=== PATIENT | female | born 1990 | race Caucasian/White ===

== ENCOUNTER 2016-11-07 20:52 | Emergency (ER) | payer BC, OTHER ==
[~2016-11-07] VITALS: Ht 160 cm; Wt 55.0 kg
[~2016-11-07 20:52] MED LIST: BCPILLS PO
[2016-11-07 20:59] VITALS: TEMP 36.6; Ht 160 cm; Wt 55.0 kg
[2016-11-07] MEDS ORDERED: DiphenhydrAMINE HCL 50 MG/ML VIAL IV STA (21:17)
[2016-11-07] MEDS ORDERED: ONDANSETRON 8 MG/54 ML D5W IV STA (21:17)
[2016-11-07] MEDS ORDERED: SODIUM CHLORIDE 0.9% 1000ML 1,000 ML IV STA (21:17)
[2016-11-07] MEDS ORDERED: [UNRECOGNIZED DRUG - OTHER] PO (21:28)
[2016-11-07] MEDS ORDERED: MoRPHine SULFATE 4 MG/ML 1 ML CARP\\VIAL IV PRN (21:30)
--- NOTE | 2016-11-07 21:31 | EMERGENCY ROOM VISIT NOTE ---
History Report prepared by Lindy: Elvis Garcia Under the Supervision of: Dr. Asad Esteves D.O. First contact with patient: 21:03 Chief Complaint: VOMITING Stated Complaint: VOMITING,POSSIBLE FOOD POISIONING History of Present Illness The patient is a 26 year old female who presents to the Emergency Room with complaints of intermittent vomiting beginning two hours prior to arrival. She currently rates her discomfort as an 8/10 in severity. The patient associates intermittent nausea and upper abdominal pain with today's symptoms. She notes she ate chicken, beans, and broccoli salad for dinner five hours ago. The patient states she does not think the meat was cooked well. She denies having issues like this in the past. The patient denies a chance of and states her last period was two weeks ago. She notes she has had two pregnancies and two children. The denies eating the chicken and beans that the patient ate. Pt denies LOC, headache, fevers, chills, diaphoresis, visual changes, neck pain, chest pain, breathing difficulties, back pain, melena, hematochezia, urinary symptoms, numbness, weakness, lymphadenopathy, rash, or other complaints. 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 A total of ten systems were reviewed and were otherwise negative. Past Medical & Surgical Medical Problems: (1) Deliver-Single Liveborn Family History Diabetes mellitus FH: cancer FH: lung disease Hypertension Kidney disease Kidney stones Social History Smoking Status: Never Smoker Alcohol Use: none Drug Use: none Marital Status: Housing Status: lives with family Occupation Status: employed Current/Historical Medications Scheduled Ondasetron Odt (Zofran Odt), 4 MG SL Q6H Scheduled PRN [Digestive-Tapan], 1 TAB PO DAILY PRN for Allergies Coded Allergies: No Known Allergies (Verified , 11/07/16) Physical Exam Vital Signs Date Time Temp Pulse Resp B/P Pulse Ox O2 Delivery O2 Flow Rate FiO2 11/07/16 23:14 84 20 92/52 100 Room Air 11/07/16 22:03 95 11/07/16 21:53 94 18 84/53 100 Room Air 11/07/16 20:59 36.6 87 18 105/67 98 Room Air Physical Exam GENERAL: Awake, alert, uncomfortable-appearing with a bucket full of vomit at bedside. HENT: Normocephalic, atraumatic. Oropharynx unremarkable. EYES: Normal conjunctiva. Sclera non-icteric. NECK: Supple. No nuchal rigidity. FROM. No JVD. RESPIRATORY: Clear to auscultation. CARDIAC: Regular rate, normal rhythm. Extremities warm and well perfused. Pulses equal. ABDOMEN: Soft, non-distended. Mild epigastric, right upper quadrant, and suprapubic tenderness to palpation. No rebound or guarding. No masses. RECTAL: Deferred. MUSCULOSKELETAL: Chest examination reveals no tenderness. The back is symmetrical on inspection without obvious abnormality. There is no CVA tenderness to palpation. No joint edema. LOWER EXTREMITIES: Calves are equal size bilaterally and non-tender. No edema. No discoloration. NEURO: Normal sensorium. No sensory or motor deficits noted. SKIN: No rash or jaundice noted. Medical Decision & Procedures Laboratory Results 11/07/16 21:45 Red Blood Count 5.24, Mean Corpuscular Volume 81.9, Mean Corpuscular Hemoglobin 27.9, Mean Corpuscular Hemoglobin Concent 34.0, Mean Platelet Volume 9.5, Neutrophils (%) (Auto) 87.2, Lymphocytes (%) (Auto) 4.5, Monocytes (%) (Auto) 6.7, Eosinophils (%) (Auto) 1.2, Basophils (%) (Auto) 0.1, Neutrophils # (Auto) 14.39, Lymphocytes # (Auto) 0.74, Monocytes # (Auto) 1.10, Eosinophils # (Auto) 0.20, Basophils # (Auto) 0.01 11/07/16 21:45 Test 11/07/16 21:45 White Blood Count 16.49 K/uL (4.8-10.8) Red Blood Count 5.24 M/uL (4.2-5.4) Hemoglobin 14.6 g/dL (12.0-16.0) Hematocrit 42.9 % (37-47) Mean Corpuscular Volume 81.9 fL (80-100) Mean Corpuscular Hemoglobin 27.9 pg (25-34) Mean Corpuscular Hemoglobin Concent 34.0 g/dl (32-36) Platelet Count 346 K/uL (130-400) Mean Platelet Volume 9.5 fL (7.4-10.4) Neutrophils (%) (Auto) 87.2 % Lymphocytes (%) (Auto) 4.5 % Monocytes (%) (Auto) 6.7 % Eosinophils (%) (Auto) 1.2 % Basophils (%) (Auto) 0.1 % Neutrophils # (Auto) 14.39 K/uL (1.4-6.5) Lymphocytes # (Auto) 0.74 K/uL (1.2-3.4) Monocytes # (Auto) 1.10 K/uL (0.11-0.59) Eosinophils # (Auto) 0.20 K/uL (0-0.5) Basophils # (Auto) 0.01 K/uL (0-0.2) RDW Standard Deviation 40.1 fL (36.4-46.3) RDW Coefficient of Variation 13.2 % (11.5-14.5) Immature Granulocyte % (Auto) 0.3 % Immature Granulocyte # (Auto) 0.05 K/uL (0.00-0.02) Anion Gap 11.0 mmol/L (3-11) Est Creatinine Clear Calc Drug Dose 81.5 ml/min Estimated GFR () 108.1 Estimated GFR (Non- 93.2 BUN/Creatinine Ratio 16.8 (10-20) Calcium Level 8.4 mg/dl (8.5-10.1) Total Bilirubin 0.3 mg/dl (0.2-1) Direct Bilirubin 0.1 mg/dl (0-0.2) Aspartate Amino Transf (AST/SGOT) 21 U/L (15-37) Alanine Aminotransferase (ALT/SGPT) 24 U/L (12-78) Alkaline Phosphatase 58 U/L (45-117) Total Protein 7.4 gm/dl (6.4-8.2) Albumin 3.7 gm/dl (3.4-5.0) Lipase 130 U/L (73-393) Human Chorionic Gonadotropin, Qual NEG (NEG) Laboratory results reviewed by me Medications Administered Medications (Trade) Dose Ordered Sig/Holly Route Start Time Stop Time Status Last Admin Dose Admin Sodium Chloride (Nss 1000ml) 1,000 ml @ 999 mls/hr Q1H1M STAT IV 11/07/16 21:17 11/07/16 22:17 DC 11/07/16 21:47 999 MLS/HR Ondansetron HCl (Zofran 8mg Iv) 8 mg NOW STAT IV 11/07/16 21:17 11/07/16 21:19 DC 11/07/16 21:46 8 MG Morphine Sulfate (MoRPHine SULFATE INJ) 4 mg Q1H PRN IV 11/07/16 21:30 11/07/16 23:58 DC 11/07/16 22:00 4 MG Diphenhydramine HCl (Benadryl Inj) 25 mg NOW STAT IV 11/07/16 21:17 11/07/16 21:19 DC 11/07/16 21:58 25 MG Ondansetron HCl (ZOFRAN ODT 4MG Home Pack) 1 homepack UD ONCE PO 11/07/16 23:00 11/07/16 23:01 DC 11/07/16 23:12 1 HOMEPACK ED Course 2111: The patient was evaluated in room A11B. A complete history and physical exam was performed. 2116: Ordered Benadryl Inj 25 mg IV, Ondansetron HCl 8 mg IV, Sodium Chloride 1, 000 ml @ 999 mls/hr IV. 2129: Ordered Morphine Sulfate 4 mg IV. 5: I reevaluated the patient. Discussed results and discharge instructions: She verbalized understanding and agreement. The patient is ready for discharge. Medical Decision Differential diagnosis: Etiologies such as appendicitis, diverticulitis, PUD, biliary pathology, UTI, pancreatitis, obstruction, mesenteric ischemia, aortic pathology, infections, inflammatory bowel disease, renal colic, as well as others were entertained. MDM: 26-year-old female with acute onset of vomiting after eating some chicken tonight. She has some mild epigastric abdominal pain after multiple episodes of vomiting. Workup and treatment in the emergency department revealed a benign findings. Most of her symptoms are completely resolved with the exception of mild nausea. She is resting happy and comfortably. The findings are a and she is to go home with Zofran as needed. She will follow up with primary care provider as needed or return to the emergency Department with onset of severe symptoms.. The patient's presentation and history is c/w the impression provided. A partial list of DDx that has been considered is listed above. By the evaluation outlined above other emergent etiologies such as those listed in the differential, as well as others, were deemed relatively unlikely. The patient has been informed about today's findings. All questions were answered to satisfaction and understanding. They are pleased with the care provided. Patient education and return instructions were discussed as per my usual and the patient was discharged in stable condition as agreed upon by the patient. The patient was referred for close follow-up and informed that they will need to call to schedule appointment during the next business hours. The chart was completed utilizing a scribe and [employer] Speech voice recognition software. Utilizing these services results in errors at time as they are imperfect. Grammatical errors, random word insertions, pronoun errors, and incomplete sentences are an occasional consequence of this system due to software limitations, ambient noise, and hardware issues. Any formal questions or concerns about the content, text, or information contained within the body of this dictation should be directly addressed to the physician for clarification. Impression Primary Impression: Vomiting Additional Impression: Gastroenteritis Scribe Attestation The scribe's documentation has been prepared under my direction and personally reviewed by me in its entirety. I confirm that the note above accurately reflects all work, treatment, procedures, and medical decision making performed by me. Departure Information Dispostion Home / Self-Care Prescriptions Ondasetron Odt (ZOFRAN ODT) 4 Mg Tab 4 MG SL Q6H for Nausea for 3 Days, #12 TAB Prov: Asad Esteves JR., DO 11/07/16 Referrals Alon Cox M.D. (PCP) Forms HOME CARE DOCUMENTATION FORM, IMPORTANT VISIT INFORMATION Patient Instructions A Signature Page, [facility] Additional Instructions Rest at home tonight. Medications as directed. Return to the emergency department if you have severe abdominal pain or intractable vomiting. Plan clear fluids including Gatorade or water. Do not drink any fruit juice or milk for the next 2 days. Start with a bland diet: Such as rice, applesauce, and toast. .
[2016-11-07 22:12] LABS: BASO % 0.1 %; BASO ABS # 0.01 K/uL (0-0.2); COMPLETE YES; EOS % 1.2 %; HEMATOCRIT 42.9 % (37-47); IG% 0.3 %; LYMPH % 4.5 %; LYMPH ABS # 0.74 K/uL (1.2-3.4); MEAN CELL VOLUME 81.9 fL (80-100); MEAN CORPUSCULAR HEMOGLOBIN 27.9 pg (25-34); MEAN PLATELET VOLUME 9.5 fL (7.4-10.4); MONO % 6.7 %; NEUT % 87.2 %; PLATELET COUNT 346 K/uL (130-400); RED BLOOD COUNT 5.24 M/uL (4.2-5.4); WHITE BLOOD COUNT 16.49 K/uL (4.8-10.8)
[2016-11-07 22:28] LABS: BUN/CREATININE RATIO 16.8 (10-20); CALCIUM 8.4 mg/dl (8.5-10.1); CREATININE 0.85 mg/dl (0.60-1.20)
[2016-11-07 22:34] LABS: PREG INTERNAL NEGATIVE QC NEG CLEAR BACKGROUND; PREG INTERNAL POSITIVE QC POS CONTROL LINE
[2016-11-07] MEDS ORDERED: ONDA4TAB10 SL (22:51)
[2016-11-07] MEDS ORDERED: ONDANSETRON HOME PACK 4MG OD TAB PO ONE (23:00)
[2016-11-07 23:14] VITALS: BP 92/52; PULSE 84; O2SAT 100
== END 2016-11-07 23:16 | disposition home or self-care (01) ==
LOC: C.EDB 20:54 → C.EDA 23:16
DX: K52.9 Noninfective gastroenteritis and colitis, unspecified (principal)